=== PATIENT | female | born 1970 | race Caucasian/White ===

== ENCOUNTER → 2017-04-09 | Outpatient (CLI) | payer BC ==
--- NOTE | 2017-04-09 12:14 | RAD ---
Examination: Chest, PA and lateral views History: Preop Findings: Normal appearance of heart, lungs, mediastinum and hilar structures. There is no pleural ef fusion. Impression: Chest within normal limits. Reported By:
[2017-04-09 12:21] LABS: BASOPHILS # (AUTO) 0.1 X10^3/uL (0.0-0.1); BASOPHILS % (AUTO) 0.6 % (0.2-1.0); EOSINOPHILS # (AUTO) 0.1 x10^3/uL (0.0-0.2); EOSINOPHILS % (AUTO) 1.3 % (0.9-2.9); HEMATOCRIT 33.6 % (36.0-47.0); HEMOGLOBIN 11.1 g/dL (12.0-16.0); LYMPHOCYTES # (AUTO) 1.7 X10^3/uL (1.3-2.9); LYMPHOCYTES % (AUTO) 18.4 % (21.0-51.0); MEAN CORPUSCULAR HEMOGLOBIN 25.6 pg (27.0-34.0); MEAN CORPUSCULAR HGB CONC 33.2 g/dL (33.0-35.0); MEAN PLATELET VOLUME 7.3 fL (7.4-11.0); MONOCYTES # (AUTO) 0.5 x10^3/uL (0.3-0.8); MONOCYTES % (AUTO) 5.9 % (0.0-13.0); NEUTROPHILS # (AUTO) 6.7 x10^3/uL (2.2-4.8); NEUTROPHILS % (AUTO) 73.8 % (42.0-75.0); PLATELET COUNT 281 X10^3/uL (150.0-450.0); RED BLOOD COUNT 4.35 X10^6/uL (3.5-5.4); RED CELL DISTRIBUTION WIDTH 15.1 % (11.6-16.5); WHITE BLOOD COUNT 9.1 X10^3/uL (3.6-10.0)
[2017-04-09 12:25] LABS: BILIRUBIN,URINE NEGATIVE (NEGATIVE); BLOOD/HEMOGLOBIN,URINE 1+ (NEGATIVE); GLUCOSE, URINE NEGATIVE (NEGATIVE); KETONES,URINE NEGATIVE (NEGATIVE); LEUKOCYTE ESTERASE ,URINE 1+ (NEGATIVE); NITRITES,URINE NEGATIVE (NEGATIVE); PROTEIN,URINE NEGATIVE (NEGATIVE); UROBILINOGEN,URINE NORMAL (NORMAL)
[2017-04-09 12:27] LABS: SERUM PREGNANCY TEST, QUAL NEGATIVE <10 mIU/mL
[2017-04-09 12:32] LABS: AMORPHOUS SEDIMENT,UR TRACE /HPF (NEGATIVE); APPEARANCE,URINE CLEAR (CLEAR); BACTERIA,URINE NEGATIVE /HPF (NEGATIVE); COLOR,URINE YELLOW (YELLOW); SQUAMOUS EPITHELIAL CELL,UR RARE /HPF (NEGATIVE)
[2017-04-09 12:35] LABS: HYPOCHROMASIA SLIGHT; MICROCYTOSIS SLIGHT; PLATELET MORPHOLOGY COMMENT NORMAL (NORMAL)
[2017-04-09 12:36] LABS: BLOOD UREA NITROGEN 14 mg/dL (7-18); CALCIUM 8.9 mg/dL (8.5-10.1); CARBON DIOXIDE 26.9 mmol/L (21-32); CHLORIDE 106 mmol/L (98-107); CREATININE 0.64 mg/dL (0.55-1.02); SODIUM 142 mmol/L (136-145); eGFR BLACK RACES > 60 (>60); eGFR NON BLACK RACES > 60 (>60)
== END ==
LOC: LAB 11:26
PROVIDERS: ATTEND Specialist
DX: Z01.818 Encounter for other preprocedural examination (principal); Z01.810 Encounter for preprocedural cardiovascular examination; Z01.811 Encounter for preprocedural respiratory examination; N92.5 Other specified irregular menstruation; N94.6 Dysmenorrhea, unspecified; R10.2 Pelvic and perineal pain; D25.9 Leiomyoma of uterus, unspecified
CPT/HCPCS: 36415; 71020; 80048; 81001; 84703; 85025; 85610; 85730; 86850; 86900; 86901; 87086; 93005; 93010

== ENCOUNTER 2017-04-14 06:30 | Inpatient (IN) | payer BC ==
[2017-04-14] MEDS ORDERED: ANCEF VIAL 1 GM ONE (06:32)
[2017-04-14] MEDS ORDERED: D5 1/2 NS 1000 ML 1,000 ML IV ONE ×2 (06:32→08:37)
[2017-04-14] MEDS ORDERED: NS 100 ML IV 100 ML IV ONE (06:32)
[2017-04-14 06:55] VITALS: BMI 35.2
[2017-04-14] MEDS ORDERED: FLUVIRIN IM ONE (06:55)
[2017-04-14] MEDS ORDERED: DILAUDID INJ ONE (07:09)
[2017-04-14] MEDS ORDERED: FENTANYL INJ 250 mcg ONE (07:09)
[2017-04-14] MEDS ORDERED: NS IRRIGATION 1000 ML 1,000 ML IR ONE ×2 (07:50→08:30)
[2017-04-14 08:01] LABS: BILIRUBIN,URINE NEGATIVE (NEGATIVE); BLOOD/HEMOGLOBIN,URINE 1+ (NEGATIVE); GLUCOSE, URINE NEGATIVE (NEGATIVE); KETONES,URINE NEGATIVE (NEGATIVE); LEUKOCYTE ESTERASE ,URINE NEGATIVE (NEGATIVE); NITRITES,URINE NEGATIVE (NEGATIVE); PROTEIN,URINE NEGATIVE (NEGATIVE); UROBILINOGEN,URINE NORMAL (NORMAL)
[2017-04-14 08:08] LABS: APPEARANCE,URINE CLEAR (CLEAR); BACTERIA,URINE NEGATIVE /HPF (NEGATIVE); COLOR,URINE YELLOW (YELLOW); RBC,URINE 0-3 /HPF (NEGATIVE); SQUAMOUS EPITHELIAL CELL,UR RARE /HPF (NEGATIVE)
[2017-04-14] MEDS ORDERED: ANCEF VIAL 1 GM 1 GM in NS 50 ML IV + SPIKE MINIBAG* 50 ML IV PRN (09:15)
[2017-04-14] MEDS ORDERED: D5 1/2 NS 1000 ML 1,000 ML IV SCH (09:15)
[2017-04-14] MEDS ORDERED: PHENERGAN INJ 25 MG IVP PRN (09:18)
[2017-04-14] MEDS ORDERED: REGLAN INJ 10 MG VIAL IVP PRN (09:18)
[2017-04-14] MEDS ORDERED: ZOFRAN INJ 4 MG VIAL IVP PRN (09:18)
[2017-04-14] MEDS ORDERED: BENADRYL INJ 50 MG VIAL IVP PRN (09:18)
[2017-04-14] MEDS: DILAUDID INJ IVP PRN ×3 (09:25→09:35)
[2017-04-14] MEDS: MORPHINE SULFATE PCA 30 MG IVP PRN (10:16)
[2017-04-14] MEDS: BENADRYL INJ 50 MG VIAL IVP PRN ×2 (10:25→20:34)
[2017-04-14] MEDS ORDERED: QUELICIN (OR ANECTINE) ONE (10:35)
[2017-04-14] MEDS ORDERED: SUPRANE IN ONE (10:35)
[2017-04-14] MEDS ORDERED: VERSED ONE (10:35)
[2017-04-14] MEDS ORDERED: DIPRIVAN VIAL ONE (10:35)
[2017-04-14] MEDS ORDERED: NORCURON INJ 10 MG VIAL ONE (10:35)
[2017-04-14] MEDS ORDERED: ZOFRAN INJ 4 MG VIAL ONE (10:35)
[2017-04-14] MEDS ORDERED: ROBINUL ONE (10:35)
[2017-04-14] MEDS ORDERED: XYLOCAINE 2 % (PLAIN) ONE (10:35)
[2017-04-14] MEDS ORDERED: NEOSTIGMINE INJ ONE (10:35)
[2017-04-14] MEDS: ZOFRAN INJ 4 MG VIAL IVP PRN (15:15)
[2017-04-14] MEDS: TORADOL 30 MG VIAL IVP PRN ×2 (15:15→20:28)
[2017-04-14] MEDS: D5 1/2 NS 1000 ML 1,000 ML IV SCH ×2 (16:45→23:40)
[2017-04-15] MEDS: MORPHINE SULFATE PCA 30 MG IVP PRN (00:18)
[2017-04-15] MEDS: D5 1/2 NS 1000 ML 1,000 ML IV SCH ×6 (01:29→18:05)
[2017-04-15 04:48] LABS: BASOPHILS % (AUTO) 0.3 % (0.2-1.0); EOSINOPHILS % (AUTO) 0.2 % (0.9-2.9); HEMOGLOBIN 9.3 g/dL (12.0-16.0); LYMPHOCYTES # (AUTO) 0.9 X10^3/uL (1.3-2.9); LYMPHOCYTES % (AUTO) 8.6 % (21.0-51.0); MEAN CORPUSCULAR HEMOGLOBIN 25.7 pg (27.0-34.0); MEAN CORPUSCULAR HGB CONC 33.3 g/dL (33.0-35.0); MEAN CORPUSCULAR VOLUME 77.1 fL (80.0-100.0); MEAN PLATELET VOLUME 7.4 fL (7.4-11.0); MONOCYTES # (AUTO) 0.6 x10^3/uL (0.3-0.8); MONOCYTES % (AUTO) 5.7 % (0.0-13.0); NEUTROPHILS # (AUTO) 8.8 x10^3/uL (2.2-4.8); NEUTROPHILS % (AUTO) 85.2 % (42.0-75.0); PLATELET COUNT 248 X10^3/uL (150.0-450.0); RED BLOOD COUNT 3.64 X10^6/uL (3.5-5.4); RED CELL DISTRIBUTION WIDTH 14.8 % (11.6-16.5); WHITE BLOOD COUNT 10.3 X10^3/uL (3.6-10.0)
[2017-04-15 04:54] LABS: BLOOD UREA NITROGEN 10 mg/dL (7-18); CALCIUM 7.3 mg/dL (8.5-10.1); CARBON DIOXIDE 23.4 mmol/L (21-32); CHLORIDE 104 mmol/L (98-107); COR NA(FOR HYPERGLY) 139 mmol/L (136-145); CREATININE 0.76 mg/dL (0.55-1.02); SODIUM 138 mmol/L (136-145); eGFR BLACK RACES > 60 (>60); eGFR NON BLACK RACES > 60 (>60)
[2017-04-15 05:18] LABS: HYPOCHROMASIA SLIGHT; MICROCYTOSIS SLIGHT; PLATELET MORPHOLOGY COMMENT NORMAL (NORMAL)
[2017-04-15] MEDS: ZOFRAN INJ 4 MG VIAL IVP PRN (06:00)
[2017-04-15] MEDS: ESTRACE PO SCH ×2 (08:45→08:46)
[2017-04-15] MEDS: PREVACID PO SCH ×2 (08:46)
[2017-04-15] MEDS: COLACE CAP 100 MG PO SCH ×2 (08:46→22:17)
[2017-04-15] MEDS: PERCOCET TAB 5/325 MG PO PRN ×2 (08:46→17:31)
[2017-04-15] MEDS: MOTRIN TAB 800 MG PO PRN ×2 (10:57→19:51)
[2017-04-15] MEDS: BACTROBAN OINT TOP SCH ×2 (13:25→22:17)
[2017-04-15] MEDS: MYLICON TAB 80 MG CHEW PO PRN (17:44)
[2017-04-15] MEDS: BENADRYL INJ 50 MG VIAL IVP PRN (20:06)
[2017-04-16] MEDS: MYLICON TAB 80 MG CHEW PO PRN ×2 (01:11→07:29)
[2017-04-16] MEDS: PERCOCET TAB 5/325 MG PO PRN ×2 (01:12→07:29)
[2017-04-16] MEDS: D5 1/2 NS 1000 ML 1,000 ML IV SCH (03:39)
[2017-04-16] MEDS: MOTRIN TAB 800 MG PO PRN (05:24)
[2017-04-16] MEDS: BACTROBAN OINT TOP SCH (05:26)
[2017-04-16] MEDS: PREVACID PO SCH (08:00)
[2017-04-16] MEDS: COLACE CAP 100 MG PO SCH (08:00)
[2017-04-16] MEDS: ESTRACE PO SCH (08:00)
[2017-04-16] MEDS ORDERED: FLUVIRIN IM ONE (08:58)
[2017-04-16 09:09] VITALS: BP 124/58
== END 2017-04-16 09:15 | disposition home or self-care (01) | DRG 761 ==
LOC: EDBD → MED/SURG 06:30
PROVIDERS: ADMIT Specialist; ATTEND Specialist
PROC: 0UTC0ZZ Resection of Cervix, Open Approach (ICD-10-PCS; 2017-04-14)
PROC: 0UT20ZZ Resection of Bilateral Ovaries, Open Approach (ICD-10-PCS; 2017-04-14)
PROC: 0UT70ZZ Resection of Bilateral Fallopian Tubes, Open Approach (ICD-10-PCS; 2017-04-14)
PROC: 3E0234Z Introduction of Serum, Toxoid and Vaccine into Muscle, Percutaneous Approach (ICD-10-PCS; 2017-04-14)
PROC: 0UT90ZZ Resection of Uterus, Open Approach (ICD-10-PCS; principal; 2017-04-14 07:30)
DX: N92.5 Other specified irregular menstruation (principal); N94.4 Primary dysmenorrhea; R10.2 Pelvic and perineal pain; Z23 Encounter for immunization
CPT/HCPCS: 36415; 80048; 81001; 85025; 90686; A4216; A4222; J0330; J0690; J1170; J1200; J1885; J2001; J2250; J2271; J2405; J2710; J3010; J3490; J7042